=== PATIENT | female | born 1960 | race Caucasian/White ===

== ENCOUNTER 2017-05-14 07:02 | Day surgery (SDC) | payer BC ==
--- NOTE | 2017-05-13 09:43 | HISTORY AND PHYSICAL ---
ADMITTED: 05/14/2017 HISTORY OF PRESENT ILLNESS: The patient is a 57-year-old female with a chief complaint of a painful bunion, left foot. She reports that the bunion has progressively gotten worse. We have been treating her conservatively since the beginning of 2016, states it is to the point now that she cannot wear shoes and she would like to have it corrected. MEDICAL/SURGICAL HISTORY: PAST MEDICAL HISTORY: History of hypothyroidism, hypertension, heart issues and cataracts. PAST SURGICAL HISTORY: Lumpectomy, tennis elbow, benign tumor removal, previous right foot bunion approximately 25 years ago. PRIMARY CARE PROVIDER: Laurence ARVIZU. MEDICATIONS: 1. Lisinopril 25 mg 1 a day. 2. Biotin 2500 mg 1 by mouth daily. 3. Vitamin D. 4. Vitamin D3, 1 by mouth daily. 5. Levothyroxine 25 mcg tablet 1 by mouth daily. 6. Multivitamin 1 by mouth daily. 7. Propranolol 20 mg 1 by mouth daily. ALLERGIES: 1. NO KNOWN DRUG OR FOOD ALLERGY. SOCIAL HISTORY: She is , employed full-time, does not drink. Former smoker. FAMILY HISTORY: Noncontributory to chief complaint. REVIEW OF SYSTEMS: A 10-point review of systems reveals some type of heart issue. PHYSICAL EXAMINATION: GENERAL: The patient is alert and oriented x3. HEAD AND NECK: PERRLA. Normocephalic. HEART: Regular rate and rhythm. Regular S1, S2. LUNGS: Clear to auscultation. No wheezing, rhonchi, or rales. ABDOMEN: Soft, tender, nondistended. No palpable masses. Normal tones. LOWER EXTREMITY: Vascular: Dorsalis pedis, posterior tibial pulses are palpable. Skin texture and turgor within normal limits. Subpapillary venous plexus capillary refill within normal limits. Orthopedically, there is crepitus within the left first MTP and hypermobility at the first tarsometatarsal. There is noted severe subluxation of the left first MTP laterally. Stance reveals collapsing medial column bilaterally. LAB/IMAGING: Taken on Orthoscan weightbearing platform, very severe hallux valgus deformity, elevated first ray, crepitus within the first MTP. IMPRESSION: 1. Severe hallux valgus deformity. PLAN: The patient is scheduled for a Lapidus bunionectomy with plantar fixation. She is well aware of the planned procedure. There were no contraindications to surgery at this time. Surgery is scheduled on an outpatient basis at [facility] on 2016.
[~2017-05-14] VITALS: Ht 167.6 cm; Wt 86.8 kg
[~2017-05-14 07:02] MED LIST: HAIR/SKIN/NAILS PO; LEVO-T125 MCG PO; LISINOPRIL/HYDR1 TA2; PROPRANOLOL HCL60 M1 PO; VITAMIN D-31000 UNIT PO
[2017-05-14] MEDS ORDERED: PERCOCET1 TA4 PO (10:33)
[2017-05-14] MEDS ORDERED: ZOFRAN4 MG PO (10:33)
--- NOTE | 2017-05-14 10:34 | Provider's Discharge Care Plan ---
Problem, Goal, Plan Problem List 1. Hallux valgus (acquired), left foot Goals: Improve function Instructions: Follow up as directed
--- NOTE | 2017-05-14 10:34 | Provider's Discharge Care Plan ---
Problem, Goal, Plan Problem List 1. Hallux valgus (acquired), left foot Goals: Improve function Instructions: Follow up as directed
--- NOTE | 2017-05-14 11:12 | DIAGNOSTIC IMAGING REPORT ---
PROCEDURE: XR FOOT 3 VIEWS - LEFT INDICATION: POST-OP- IN PACU TECHNIQUE: Three views. COMPARISON: None. FINDINGS: Status post Lapidus bunionectomy. Two screws are in place. Alignment is anatomic. IMPRESSION: 1. Normal alignment post bunionectomy
--- NOTE | 2017-05-14 13:09 | OPERATIVE REPORT ---
DATE OF SURGERY: 05/14/2017 SURGEON: Pablo Wright DPM PREOPERATIVE DIAGNOSES: 1. Hallux valgus deformity, left foot 2. Ingrown toenail, left great toe POSTOPERATIVE DIAGNOSES: 1. Hallux valgus deformity, left foot 2. Ingrown toenail, left great toe PROCEDURE PERFORMED: 1. Lapidus bunionectomy with internal fixation. 2. Removal of ingrown toenail, medial border left great toe ANESTHESIA: General. HEMOSTASIS: Achieved by pneumatic ankle tourniquet inflated to 250 mmHg pressure. TOURNIQUET TIME: Total tourniquet time 95 minutes. MATERIALS: Used 3-0 and 4-0 Polysorb, 4-0 Biosyn and two 34 mm 4.0 headless compression screws by Arthrex. INJECTABLES: Injected 20 mL of 0.5% bupivacaine plain. COMPLICATIONS: None. CONDITION: The patient tolerated anesthesia and procedure well. INDICATIONS: The patient 57-year-old female with a chief complaint of a painful left bunion and ingrown toenail of her left great toe. She exhausted conservative care and has elected to proceed with surgical intervention. All preoperative, perioperative and postoperative course, as well as planned procedure were discussed. No contraindications to surgery at this time. SURGICAL TECHNIQUE: The patient was brought to the operating room and placed on the table in the supine position. An intraoperative pause was carried out for positive identification, proper limb, and consent form verified and confirmed. A pneumatic tourniquet was then placed above the left ankle. The left lower extremity was prepped and draped in normal sterile fashion. An intraoperative pause was carried out again verified as well as the preoperative antibiotic. Esmarch bandage was then utilized to exsanguinate the limb, the tourniquet was then inflated. Attention was then directed to procedure #1: Procedure#1: Lapidus bunionectomy with internal fixation: At this time, a linear incision was made from the proximal aspect of the tarsometatarsal extending distally across the first MTP. Dissection was carried out of the lateral aspect of the first MTP, where a complete lateral release was carried out as well as release of the extensor hallucis brevis tendon. The capsular incision was made allowing access to the first metatarsal head. It was excised with the medial eminence; it was excised at the first metatarsal head just lateral to the groove in the inferior aspect of the first metatarsal. Dissection was then carried back proximally to the tarsometatarsal joint where superficial vessels were tied off. The tarsometatarsal joint was then disarticulated with a large joint distractor. A 3 mm wedge of bone was taken laterally from the first cuneiform and then the base of the first metatarsal was then denuded via an osteotome, priyank in a fish scale fashion. Fenestrated with a 2.0 drill bit, both the first cuneiform and base of first metatarsal. The area was flushed. The first metatarsal was then translated in both the sagittal and transverse plane at 0 degrees IM angle. The first tarsometatarsal joint fusion was carried out using standard AO techniques with a headless compression screw, first one driven from distal to proximal from the base of first metatarsal to the first cuneiform and then from proximal to distal from the first cuneiform to the base of the first metatarsal. There was a small gap inferiorly which was filled with 1 mL of DBM bone putty. The area was flushed. Capsule and periosteum reapproximated with 3-0 Polysorb, the subcutaneous with 4-0, and the skin edge reapproximated in running fashion with 4-0 Biosyn. Attention was then directed to procedure #2: Procedure #2: Removal of ingrown toenail, medial portal, left great toe: At this time, a periosteal elevator was utilized to free up the medial border of the left great toe, an [place] anvi nail splitter was then utilized to split the nail from distal to proximal. It was removed with a straight hemostat. A curette was then utilized to remove the redundant nail fold. A Bovie was then used proximally for an electro ablation of the matrix cells. Curetted again. The area was flushed. Both surgical shirley were locally anesthetized with the aforementioned local anesthetic. A light compressive dressing was applied. The tourniquet was released with normal reactive hyperemia. A posterior splint was applied prior to leaving the operating room. The patient tolerated anesthesia and procedure well and left the room with vital signs stable. While in recovery, written instructions for absolutely nonweightbearing with the aid of splint. Prognosis is guarded. She will be discharged home in stable condition.
[2017-05-14 15:01] VITALS: BP 122/65
== END 2017-05-14 14:51 | disposition home or self-care (01) ==
LOC: OR SRH 07:02 → SCU SRH 07:05 → OR SRH 09:00
PROVIDERS: Podiatrist
PROC: 0SGL04Z Fusion of Left Tarsometatarsal Joint with Internal Fixation Device, Open Approach (ICD-10-PCS; principal; 2017-05-14 09:00)
PROC: 0QBP0ZZ Excision of Left Metatarsal, Open Approach (ICD-10-PCS; principal; 2017-05-14 09:00)
PROC: 0HBRXZZ Excision of Toe Nail, External Approach (ICD-10-PCS; principal; 2017-05-14 09:00)
DX: M20.12 Hallux valgus (acquired), left foot (principal); M21.612 Bunion of left foot; L60.0 Ingrowing nail; I10 Essential (primary) hypertension